=== PATIENT | female | born 1975 | race African-American/Black ===

== ENCOUNTER 2020-08-02 08:28 | Outpatient (CLI) | payer OTHER ==
[~2020-08-02 08:28] MED LIST: ACET7.5T70; ACET7.5T70 PO; ADVAIR HF2; ADVAIR HF2 IN; ALBUTEROL INH; AMIO200T14; AMIO200T14 PO; ASA LO-DOSE81 MG PO; ASPIR-8181 MG PO; CETI10TA PO; COUMADIN2 MG PO; DIGO0.1230; DIGOXIN0.125 MG PO; FERR325T5 PO; FURO40TA93; FURO40TA93 PO; IRON325 MG PO; LEVO0.0723; LEVO0.0723 PO; LISI10TA11; LISI10TA11 PO; METO25TA4 PO; METOPROLOL25 M1 PO; PEPCID20 MG PO; PROVENTIL; RYBIX ODT50 MG; RYBIX ODT50 MG PO; WARFARIN2 MG PO; WARFARIN3 MG PO
== END 2020-08-02 20:17 | disposition home or self-care (01) ==
LOC: RESP 08:28
DX: Z01.818 Encounter for other preprocedural examination (principal); I05.9 Rheumatic mitral valve disease, unspecified; Z95.2 Presence of prosthetic heart valve

== ENCOUNTER 2021-12-21 09:39 | Emergency (ER) | payer OTHER ==
[~2021-12-21] VITALS: Ht 162.6 cm; Wt 81.6 kg
[2021-12-21] MEDS ORDERED: DIGITEK0.125 MG PO (10:02)
[2021-12-21] MEDS ORDERED: VALSARTAN80 MG PEG (10:09)
[2021-12-21] MEDS ORDERED: LIPITOR40 MG PEG (10:09)
[2021-12-21] MEDS ORDERED: JANTOVEN5 MG PO (10:11)
[2021-12-21 10:34] LABS: PLATELET COUNT 293 K/uL (152-353)
[2021-12-21 10:41] LABS: POTASSIUM 3.5 mmol/L (3.6-5.2)
[2021-12-21 11:05] LABS: PARTIAL THROMBOPLASTIN TIME 40.1 SECONDS (24.5-33.6)
[2021-12-21 11:47] VITALS: BP 119/92; TEMP 97
== END 2021-12-21 11:47 | disposition home or self-care (01) ==
LOC: ED 09:39
PROVIDERS: Family Medicine
DX: D68.8 Other specified coagulation defects (principal); R73.9 Hyperglycemia, unspecified; T45.515A Adverse effect of anticoagulants, initial encounter; Y92.89 Other specified places as the place of occurrence of the external cause; Z98.890 Other specified postprocedural states
CPT/HCPCS: 80053; 80162; 81000; 85027; 85610; 85730; 99283